=== PATIENT | female | born 1955 | race Caucasian/White ===

== ENCOUNTER → 2017-02-15 | Day surgery (SDC) | payer MEDICARE, OTHER ==
[2017-02-15 07:05] LABS: CREATININE 0.6 mg/dL (0.5-1.0); POTASSIUM 3.7 mmol/L (3.5-5.1)
== END | disposition home or self-care (01) ==
LOC: FAS 06:02
PROVIDERS: Anesthesiology
DX: M23.201 Derangement of unspecified lateral meniscus due to old tear or injury, left knee (principal); G20 Parkinson's disease; E78.00 Pure hypercholesterolemia, unspecified; M19.90 Unspecified osteoarthritis, unspecified site; F41.9 Anxiety disorder, unspecified; Z98.1 Arthrodesis status; Z96.643 Presence of artificial hip joint, bilateral; Z90.710 Acquired absence of both cervix and uterus; Z79.818 Long term (current) use of other agents affecting estrogen receptors and estrogen levels; Z79.1 Long term (current) use of non-steroidal anti-inflammatories (NSAID); Z79.899 Other long term (current) drug therapy; Z98.890 Other specified postprocedural states
CPT/HCPCS: 36415; 80048; J2274; J2405; J2704; J3010

== ENCOUNTER 2022-06-06 17:11 | Emergency (ER) | payer MEDICARE, OTHER ==
[2022-06-06 19:17] LABS: BASOPHIL 0.2 % (0-2); EOSINOPHIL 1.6 % (0-7); HCT 34.2 % (37.0-47.0); HGB 11.6 g/dl (12.5-16.0); LYMPHOCYTE 23.8 % (15-48); MCH 30.3 pg (25.0-31.0); MCHC 33.9 g/dL (32.0-36.0); MCV 89.3 fL (78.0-100.0); MONOCYTE 7.4 % (0-12); MPV 10.2 fL (6.0-9.5); NRBC 0; PLT 225 K/uL (150-400); RBC 3.83 M/uL (4.20-5.40); RDW 12.6 % (11.5-14.0); WBC 11.5 K/uL (4.0-10.5)
[2022-06-06 19:42] LABS: BUN/CREAT RATIO (CALC) 39.4 RATIO; CREATININE 0.66 mg/dL (0.51-0.95)
[2022-06-06 19:47] LABS: POTASSIUM 2.4 mmol/L (3.5-5.1)
== END 2022-06-06 22:58 | disposition admitted as inpatient to this hospital (09) ==
LOC: FER 17:11
PROVIDERS: Emergency Medicine
DX: T84.020A Dislocation of internal right hip prosthesis, initial encounter (principal); E87.6 Hypokalemia; I10 Essential (primary) hypertension; Z88.8 Allergy status to other drugs, medicaments and biological substances; Z88.1 Allergy status to other antibiotic agents; Z88.5 Allergy status to narcotic agent
CPT/HCPCS: 36415; 73501; 73502; 80048; 85025; J2270; J2405; J3475; J3480; J7030; J7050